=== PATIENT | female | born 1950 | race Caucasian/White ===

== ENCOUNTER → 2017-06-23 | Outpatient (CLI) | payer MEDICARE ==
[2017-06-23] MEDS: IOHEXOL 300MG/ML 150 ML BTL (10:06)
[2017-06-23] MEDS: SOD CHLORIDE 0.9% 100 ML (10:06)
== END | disposition home or self-care (01) ==
LOC: C/S 09:25
DX: R10.9 Unspecified abdominal pain (principal)
CPT/HCPCS: 74177